=== PATIENT | female | born 1955 | race Caucasian/White ===

== ENCOUNTER 2021-04-08 12:10 | Outpatient (CLI) | payer OTHER ==
--- NOTE | 2021-04-08 17:11 | XRAY Report ---
PROCEDURE: Hip w/Pelvis 2-3V RT INDICATIONS: HIP PAIN, RIGHT TECHNIQUE: AP pelvis with lateral view(s) of the bilateral hip(s). COMPARISON: None. FINDINGS: Bones: No fractures or dislocations. Pelvic ring appears intact. No suspicious bony lesions. Mild bilateral hip osseous hypertrophy compatible with osteoarthritis. Soft tissues: The visualized bowel gas pattern is normal. No suspicious soft tissue calcifications. IMPRESSION: Mild bilateral hip osteoarthritis. Reviewed by: Sharon Dumont MD, PhD on 04/08/2021 5:10 PM PDT Approved by: Sharon Dumont MD, PhD on 04/08/2021 5:10 PM PDT Station ID: [id number]
== END 2021-04-08 12:11 | disposition home or self-care (01) ==
LOC: DI.N 12:10
PROVIDERS: ATTEND Family Medicine
DX: M25.551 Pain in right hip (principal); M16.0 Bilateral primary osteoarthritis of hip

== ENCOUNTER 2021-04-08 12:58 | Outpatient (CLI) | payer OTHER ==
--- NOTE | 2021-04-08 13:31 | XRAY Report ---
PROCEDURE: Shoulder 2 View RT INDICATIONS: ARM PAIN, RIGHT TECHNIQUE: 2 views of the shoulder were acquired. COMPARISON: None. FINDINGS: Bones: No fractures or dislocations. No suspicious bony lesions. Visualized ribs appear intact. M oderate to severe acromioclavicular degenerative narrowing. Soft tissues: No suspicious soft tissue calcifications. IMPRESSION: 1. No visualized acute fracture or dislocation. However, occult injury cannot be excluded. Recommend short interval imaging follow-up in 7-10 days as clinically indicated for additional evaluation. 2. Moderate to severe acromioclavicular degenerative narrowing. Reviewed by: Radha oMran MD on 04/08/2021 1:29 PM PDT Approved by: Radha Moran MD on 04/08/2021 1:29 PM PDT Station ID: [id number]
== END 2021-04-08 12:59 | disposition home or self-care (01) ==
LOC: DI.N 12:58
PROVIDERS: ATTEND Family Medicine
DX: M79.601 Pain in right arm (principal); M19.011 Primary osteoarthritis, right shoulder; M25.551 Pain in right hip; M16.0 Bilateral primary osteoarthritis of hip

== ENCOUNTER 2021-04-21 12:58 | Outpatient (CLI) | payer OTHER ==
--- NOTE | 2021-04-30 10:35 | Mammography Report ---
BILATERAL DIGITAL SCREENING MAMMOGRAM 3D/2D: 04/21/2021 CLINICAL: Routine screening. Comparison is made to exams dated: 09/06/2017 mammogram, 08/30/2016 mammogram, 09/11/2015 mammogram, and 08/19/2014 mammogram - [facility]. The tissue of both breasts is heterogeneously dense. Thi s may lower the sensitivity of mammography. No significant masses, calcifications, or other findings are seen in either breast. There has been no significant interval change. IMPRESSION: NEGATIVE There is no mammographic evidence of malignancy. A 1 year screening mammogram is recommended. This exam was interpreted at Station ID: [id number]. NOTE: For mammograms, a report in lay terms will be sent to the patient. Approximately 15% of breast malignancies will not be visualized mammographically. In the management of a palpable breast mass, a negative mammogram must not discourage biopsy of a clinically suspicious lesion. Electronically Signed By: Ana robison/[email or web address]:04/29/2021 11:42:05 ACR BI-RADS Category 1: Negative 3341F PARENCHYMAL PATTERN: (D) - The breast(s) demonstrate(s) heterogeneously dense fibroglandular sg boland. BI-RADS CATEGORY: (1) - 1 RECOMMENDATION: (ANNUAL) - Recommend routine annual screening mammography. [id number] 1 year screening LATERALITY: (B)
== END 2021-04-21 12:59 | disposition home or self-care (01) ==
LOC: DI 12:58
DX: Z12.31 Encounter for screening mammogram for malignant neoplasm of breast (principal)

== ENCOUNTER 2021-05-18 10:26 | Outpatient (CLI) | payer OTHER ==
--- NOTE | 2021-05-20 09:46 | XRAY Report ---
PROCEDURE: Shoulder 3 View RT INDICATIONS: R ARM PX TECHNIQUE: 4 views of the shoulder were acquired. COMPARISON: 04/08/2021 FINDINGS: Bones: No fractures or dislocations. No suspicious bony lesions. Visualized ribs appear intact. D egenerative changes are seen, including moderate subacromial spurring. Soft tissues: No suspicious soft tissue calcifications. The visualized lung demonstrates a normal a ppearance. IMPRESSION: Age-appropriate shoulder degenerative changes are seen by plain film, which are similar to the prior study. If it would be helpful for clinical management decision making, please consider a dedicated, schedule d shoulder MRI for further evaluation (assuming that there is no contraindication). Reviewed by: Nikko Stoner MD on 05/20/2021 8:45 AM CHUCKY Approved by: Nikko Stoner MD on 05/20/2021 8:45 AM CHUCKY Station ID: [id number]
== END 2021-05-18 23:59 | disposition home or self-care (01) ==
LOC: DI.N 10:26
PROVIDERS: ATTEND Orthopaedic Surgery
DX: M19.011 Primary osteoarthritis, right shoulder (principal)

== ENCOUNTER 2021-09-01 09:43 | Outpatient (CLI) | payer OTHER ==
--- NOTE | 2021-09-01 11:12 | MRI Report ---
PROCEDURE: Shoulder RT W/O INDICATIONS: RIGHT ROTATOR CUFF SYNDROME TECHNIQUE: Noncontrast oblique coronal T2 fast spin echo with fat saturation, oblique sagittal T1 spin echo and T2 fast spin echo with fat saturation, axial T1 spin echo and T2 fast spin echo with fat saturation t hrough the shoulder. COMPARISON: None. Findings: Supraspinatus: Moderate tendinopathy with small full-thickness tear near the humeral attachment. Infraspinatus: Mild to moderate tendinopathy with small interstitial and partial bursal surface tears . Subscapularis: No evidence of tear. Teres minor: No evidence of tear. Labrum: Linear signal in the anterior superior labrum (series 501, image 20), compatible with labral tear. Biceps tendon: No evidence of subluxation or tear. Acromioclavicular joint: Moderate arthrosis with fluid signal within the articulation. Muscle: Grade 2 atrophy of the supraspinatus. Bones: No significant abnormality. Fibrocystic change of the humeral head. Miscellaneous: Small glenohumeral joint effusion. Small subacromial/deltoid bursal fluid. No intra-articular bodies. Intact coracoclavicular ligament. IMPRESSION: 1. Moderate supraspinatus tendinopathy with small full-thickness tear near the humeral attachment. 2. [id number] infraspinatus tendinopathy with small interstitial and partial bursal surface tea rs. 3. Moderate arthrosis of the AC joint. 4. Grade 2 atrophy of the supraspinatus muscle. 5. Small glenohumeral joint effusion. 6. Mild subacromial/subdeltoid bursitis. Reviewed by: Sd Aburto MD on 09/01/2021 11:11 AM PDT Approved by: Sd Aburto MD on 09/01/2021 11:11 AM PDT Station ID: [id number]
== END 2021-09-01 09:44 | disposition home or self-care (01) ==
LOC: DI 09:43
PROVIDERS: ATTEND Orthopaedic Surgery
DX: M75.121 Complete rotator cuff tear or rupture of right shoulder, not specified as traumatic (principal); M19.011 Primary osteoarthritis, right shoulder; M62.511 Muscle wasting and atrophy, not elsewhere classified, right shoulder; M25.411 Effusion, right shoulder; M75.51 Bursitis of right shoulder

== ENCOUNTER 2021-09-13 10:39 | Day surgery (SDC) | payer OTHER ==
[~2021-09-13 10:39] MED LIST: ACETAMINOPHEN 1,000 MG/100 ML 100 ML IV ONE; CEFAZOLIN SODIUM IN 0.9 % NACL 2 GM/100 ML BAG IV ONE; CELECOXIB 100 MG CAPSULE PO ONE; LACTATED RINGERS 1,000 ML IV ONE
--- NOTE | 2021-09-13 11:13 | ANESTHESIA ---
Pre-Anesthesia VS, & Labs - Diagnosis complete tear of rotator cuff right shoulder - Procedure right shoulder arthroscopy, RCR Vital Signs: Temp Pulse Resp BP Pulse Ox 36.3 C L 88 15 153/94 H 98 09/13/21 10:50 09/13/21 10:50 09/13/21 10:50 09/13/21 10:50 09/13/21 10:50 Height: 5 ft 2 in Weight (kg): 57.1 kg Body Mass Index: 23.0 BMI Classification: Healthy weight - NPO >8 hours - Is Patient ?: No - Lab Results Lab results reviewed: Yes Home Medications and Allergies Home Medications: Ambulatory Orders Acetaminophen [Tylenol] 650 mg PO Q6H PRN 09/07/21 Aspirin [Aspirin EC] 81 mg PO DAILY 09/07/21 Calcium Carbonate [Calcium] 600 mg PO DAILY 09/07/21 Ibuprofen [Motrin] 600 mg PO Q6H PRN 09/07/21 Lovastatin 40 mg PO DAILY 09/07/21 Magnesium 250 mg PO DAILY 09/07/21 Multivitamin 1 each PO DAILY 09/07/21 Zinc Gluconate [Zinc] 50 mg PO DAILY 09/07/21 Acetaminophen [Tylenol] 650 mg PO Q6H PRN 09/07/21 Aspirin [Aspirin EC] 81 mg PO DAILY 09/07/21 Calcium Carbonate [Calcium] 600 mg PO DAILY 09/07/21 Ibuprofen [Motrin] 600 mg PO Q6H PRN 09/07/21 Lovastatin 40 mg PO DAILY 09/07/21 Magnesium 250 mg PO DAILY 09/07/21 Multivitamin 1 each PO DAILY 09/07/21 Zinc Gluconate [Zinc] 50 mg PO DAILY 09/07/21 Allergies/Adverse Reactions: Allergies Allergy/AdvReac Type Severity Reaction Status Date / Time No Known Drug Allergies Allergy Verified 09/13/21 11:06 Anes History & Medical History - Anesthetic History Anesthesia Complications: reports: No previous complications Family history of Anesthesia Complications: Denies Family history of Malignant Hyperthermia: Denies - Medical History Cardiovascular: reports: High cholesterol, Pulmonary embolism Pulmonary: reports: None Gastrointestinal: reports: None Urinary: reports: None Musculoskeletal: reports: Osteoarthritis Endocrine/Autoimmune: reports: None Skin: reports: Other - Surgical History General: reports: Colonoscopy Orthopedic: reports: Other Exam General: Alert, Oriented x3, Cooperative, No acute distress Dental: WNL Mouth Openin Fingerbreadth Neck Mobility: Normal Mallampati classification: II Respiratory: Lungs clear, Normal breath sounds, No respiratory distress, No accessory muscle use Cardiovascular: Regular rate, Normal S1, Normal S2, No murmurs Plan Anesthesia Type: General, Interscalene Block Consent for Procedure(s) Verified and Reviewed: Yes Code Status: Attempt Resuscitation ASA classification: 1-Healthy patient Is this case an emergency?: No
[2021-09-13] MEDS ORDERED: MIDAZOLAM 2 MG/2 ML VIAL ONE (11:49)
[2021-09-13] MEDS ORDERED: ROPIVACAINE 0.5% PF 20 ML AMPULE ONE (11:49)
[2021-09-13] MEDS ORDERED: DEXMEDETOMIDINE 200 MCG/2 ML VIAL ONE (11:50)
[2021-09-13] MEDS ORDERED: ONDANSETRON 4 MG/2 ML VIAL ONE (11:50)
[2021-09-13] MEDS ORDERED: LIDOCAINE-PF 2% 10 ML AMP SUBQ ONE (11:50)
[2021-09-13] MEDS ORDERED: PROPOFOL 200 MG/20 ML VIAL IVP ONE (11:50)
[2021-09-13] MEDS ORDERED: KETOROLAC 30 MG/ML VIAL ONE (11:50)
[2021-09-13] MEDS ORDERED: ROCURONIUM 50 MG/5 ML VIAL ONE (11:50)
[2021-09-13] MEDS ORDERED: DEXAMETHASONE 10 MG/ML VIAL ONE (11:50)
[2021-09-13] MEDS ORDERED: ePHEDrine 50 MG/ML VIAL IVP ONE (13:12)
--- NOTE | 2021-09-13 14:49 | OPERATIVE REPORT ---
Operative Report - General Procedure Date: 09/13/21 Planned Procedure: Arthroscopy right shoulder, possible rotator cuff repair right shoulder Pre-Op Diagnosis: Rotator cuff tear right shoulder Procedure Performed: Arthroscopy right shoulder, arthroscopic rotator cuff repair right shoulder Post Op Diagnosis: Small rotator cuff tear right shoulder - Procedure Note Primary Surgeon: Mars Flores MD Secondary Surgeon: Jose MORALES Anesthesia Provider: Narendra Pizarro CRNA Anesthesia Technique: General ET tube, Regional block Estimated Blood Loss (mL): 10 Indications: This is a healthy, active 66-year-old woman with failed conservative treatment for her right shoulder pain. She had localized marked tenderness to the greater tuberosity and considerable pain with supraspinatus testing. Her routine radiographs were normal. Her MRI scan suggested a focal complete small tear to the supraspinatus right shoulder Findings: There was primarily a bursal sided tear to the rotator cuff. This comprised about 80% tear to the supraspinatus. The articular side of the tear was still intact. The biceps tendon appear normal. There was fraying of the labrum but no tear. The biceps tendon appeared normal. The subscapularis showed subtle fraying but no tears. The posterior cuff was intact. The articular surfaces appeared normal. The rotator interval and glenohumeral ligaments appeared normal. Complications: None - Other Other Information/Narrative: After satisfactory anesthesia was achieved, the patient was placed in the semisitting position using a beach chair positioner and protective facemask. The neck was positioned in a neutral position. The right shoulder and right upper extremity were prepped and draped in a sterile manner in the usual fashion. The Arthrex trimano arm garcia was utilized.A timeout procedure was performed by the entire operating room team and all were in agreement. She did receive 2 g of Ancef intravenously. The bony landmarks of the right shoulder were outlined with a sterile marking pen. A posterior glenohumeral portal was established. An anterior portal was established under direct visualization in the safe interval. The 4 mm Grid Mobile diagnostic arthroscope was used throughout the procedure with inflow through the arthroscope using the arthroscopic Arthrex pump. Complete glenohumeral diagnostic arthroscopy was performed and was facilitated by a probe. The rotator cuff footprint appeared normal. The biceps tendon was intact, no fraying or sign of tendinitis. The subscapularis was intact. The anterior labrum showed some fraying but no tears. The labrum was circumferentially intact. The posterior cuff was intact. The arthroscope was then placed in the subacromial space, again using the posterior portal. A lateral subacromial portal was established and a partial bursectomy was performed with both shaver and radiofrequency probe. The tear was a high-grade partial tear which was completed to a full-thickness crescent-shaped tear at the greater tuberosity. The degenerative tissue was debrided to healthier tissue. The rotator cuff was repaired using a cannula in the lateral subacromial portal. The [employer] suture passer was utilized to pass a fiber tape in a horizontal mattress fashion. Both of these suture strands were taken through an anterior cannula. A fiber link suture was then passed through the cuff. All 3 suture strands were then taken through the lateral subacromial portal. A sharp awl was used to make a pilot boat operator hole for the 4.75 Arthrex swivel anchor. The suture was loaded to the anchor and the suture was then deployed with the anchor. The suture was tensioned before seating the suture anchor. The anchor was stable to traction. The suture ends were cut with a suture cutter. There was good tension to the repair and the rotator cuff approximated very well to the footprint. The arthroscopic portals were closed with a single 2-0 nylon suture, dry sterile dressing and sling. Patient tolerated the procedure well. A physician occupational therapist's assistant was utilized and felt to be medically necessary to help with the suture passage, repair and anchor insertion.
[2021-09-13] MEDS ORDERED: KETOROLAC 15 MG/ML VIAL IVP STA (14:56)
[2021-09-13] MEDS ORDERED: oxyCODONE 5 MG TABLET PO PRN (14:56)
--- NOTE | 2021-09-13 15:01 | OPERATIVE REPORT ---
Operative Report - Procedure Note Anesthesia Technique: General ET tube, Regional block, Other
[2021-09-13] MEDS ORDERED: LACTATED RINGERS 1,000 ML IV ONE (15:03)
--- NOTE | 2021-09-13 15:31 | ANESTHESIA POST OP EVALUATION ---
Anesthesia Post Eval - Post Anesthesia Eval Vitals: Last Vital Signs Temp 36.2 C L 09/13/21 15:21 Pulse 92 09/13/21 15:21 Resp 13 09/13/21 15:21 BP 131/93 H 09/13/21 15:21 Pulse Ox 94 09/13/21 15:21 CV Function Including HR & BP: Stable Pain Control: Satisfactory Nausea & Vomiting: Negative Mental Status: Baseline Respiratory Status: Airway Patent Hydration Status: Satisfactory Anesthesia Complications: None
[2021-09-13 16:13] VITALS: BP 119/77
== END 2021-09-13 10:40 | disposition home or self-care (01) ==
LOC: SDS 10:39
PROVIDERS: ATTEND Orthopaedic Surgery
DX: M75.101 Unspecified rotator cuff tear or rupture of right shoulder, not specified as traumatic (principal); Z87.891 Personal history of nicotine dependence
CPT/HCPCS: 29827; A9270; C1713; J0131; J0690; J7120

== ENCOUNTER 2024-06-27 08:00 | Outpatient (CLI) | payer MEDICARE, OTHER ==
--- NOTE | 2024-06-27 21:09 | XRAY Report ---
PROCEDURE: Finger(s) RT INDICATIONS: LACERATION WITHOUT FOREIGN BODY OF RT INDEX FINGER TECHNIQUE: AP hand, 2 views of the second finger(s) acquired. COMPARISON: None. FINDINGS: Bones: No fractures or dislocations. Underlying degenerative changes are seen, including mild pencil in cup deformity involving the distal interphalangeal joint of the second finger. Milder degenerative changes are seen elsewhere, including involving the first carpometacarpal joint. Soft tissues: No radiopaque foreign bodies are seen. No suspicious soft tissue masses. Soft tissue calcifications can be seen adjacent to the distal ulna. IMPRESSION: No karen acute fracture is seen. No radiopaque foreign bodies are seen. Underlying degenerative changes are seen, including mild pencil in cup type deformity of the distal i nterphalangeal joint of the second finger. Please consider psoriatic arthritis. Reviewed by: Nikko Stoner MD on 06/27/2024 8:07 PM CHUCKY Approved by: Nikko Stoner MD on 06/27/2024 8:07 PM CHUCKY Station ID: [id number]
== END 2024-06-27 08:15 | disposition home or self-care (01) ==
LOC: DI.N 08:00
PROVIDERS: ATTEND Family Medicine
DX: S61.210A Laceration without foreign body of right index finger without damage to nail, initial encounter (principal); M19.09 Primary osteoarthritis, other specified site